=== PATIENT | female | born 1950 | race African-American/Black ===

== ENCOUNTER 2017-02-02 07:10 | Emergency (ER) | payer OTHER ==
[2017-02-02 07:19] VITALS: TEMP 97.8; BMI 21.9
--- NOTE | 2017-02-02 07:33 | PDOC ---
History of Present Illness - General History Source: Patient Exam Limitations: No Limitations - History of Present Illness Initial Comments: CHIEF COMPLAINT: 66 y/o afebrile female with PMH HTN, DM BIB EMS for dizziness and headache. HISTORY OF PRESENT ILLNESS: The patient states for the past 2 days she's had dizziness, describing it as the room spinning. She states she woke up this morning and was so dizzy she thought she was going to pass out. She also admits to left sided headache and pounding in her left ear, which normally means her blood pressure is high. She took 2 doses of Lisinopril yesterday ( normal dose is once a day) because she kept feeling the pounding in her head. She denies fever, chills, neck pain, n/v/d, CP, SOB, palpitations, abd pain, back pain, hematuria, dysuria, hematuria, facial drooping, slurred speech, numbness/tingling in extremities. Vital signs on arrival are notable for BP of 197/92. REVIEW OF SYSTEMS: GENERAL/CONSTITUTIONAL: No fever/chills. No weakness. No weight change. HEAD, EYES, EARS, NOSE AND THROAT: No change in vision. No ear pain or discharge. No sore throat. CARDIOVASCULAR: No chest pain or shortness of breath. RESPIRATORY: No cough, wheezing, or hemoptysis. GASTROINTESTINAL: No abd pain, nausea, vomiting, diarrhea. GENITOURINARY: No dysuria, frequency, or change in urination. MUSCULOSKELETAL: No joint or muscle swelling or pain. No neck or back pain. SKIN: No rash or easy bruising. NEUROLOGIC: +headache and vertigo. No loss of consciousness or loss of sensation. PHYSICAL EXAM: GENERAL: The patient is awake, alert, and fully oriented, in no acute distress. She is well appearing, in NAD or obvious discomfort. HEAD: Normal with no signs of trauma. No hematomas. NECK: Full flexion, extension and lateral movements of neck without pain. No midline cervical spine TTP or step offs. ENT: Pupils equal, round and reactive to light, extraocular movements intact, sclera anicteric, conjunctiva clear. No nystagmus. LUNGS: Clear to auscultation bilaterally. Normal excursion. No respiratory distress or use of accessory muscles. CV: RRR, S1/S2, no MRG. Cap refill < 2 sec. Left sided carotid bruit. ABDOMEN: Soft, non-distended, non-tender even to deep palpation, no hepatomegaly or splenomegaly, no masses. EXTREMITIES: Normal range of motion, no edema. NEUROLOGICAL: Normal speech. CN II-XII grossly intact. No slurred speech. No facial drooping. Normal finger to nose. Normal rapid alternating movements. PSYCH: Normal mood, normal affect. SKIN: Warm, dry, normal turgor, no rashes or lesions noted. <Patty Chatterjee - Last Filed: 02/02/17 18:15> <Veena Gilliam - Last Filed: 02/03/17 10:40> - General Chief Complaint: Blood Pressure Problem Stated Complaint: ABDOMINAL PAIN Time Seen by Provider: 02/02/17 07:18 Past History - Past Medical History Diabetes: Yes (type 2) HTN: Yes - Psycho/Social/Smoking Cessation Hx Suicidal Ideation: No Smoking History: Never smoked <Patty Chatterjee - Last Filed: 02/02/17 18:15> <Veena Gilliam - Last Filed: 02/03/17 10:40> - Past Medical History Allergies/Adverse Reactions: Allergies Allergy/AdvReac Type Severity Reaction Status Date / Time No Known Allergies Allergy Verified 02/02/17 07:14 Home Medications: Ambulatory Orders Cholecalciferol (Vitamin D3) [Vitamin D-400] 400 unit PO DAILY 02/02/17 Glyburide/Metformin HCl [Glyburide-Metformin 5-500 mg] 1 each PO BID 02/02/17 Lisinopril [Prinivil] 10 mg PO DAILY 02/02/17 Magnesium Oxide [Mag-Ox -] 400 mg PO DAILY 02/02/17 Meclizine HCl [Antivert -] 25 mg PO TID #21 tablet 02/02/17 Mv,Calcium,Min/Iron/Folic/Vitk [Essential Woman Tablet] 1 each PO DAILY *Physical Exam - Vital Signs Last Vital Signs Temp Pulse Resp BP Pulse Ox 97.8 F 63 18 197/92 100 02/02/17 07:17 02/02/17 07:17 02/02/17 07:17 02/02/17 07:17 02/02/17 07:17 <Patty Chatterjee - Last Filed: 02/02/17 18:15> - Vital Signs Last Vital Signs Temp Pulse Resp BP Pulse Ox 97.8 F 65 18 144/72 99 02/02/17 07:17 02/02/17 10:15 02/02/17 10:15 02/02/17 10:15 02/02/17 10:15 <Veena Gilliam - Last Filed: 02/03/17 10:40> Heart Score/ECG Review - ECG Intrepretation Comment:: Twelve-lead EKG was performed and reviewed by Dr. Gilliam. There is normal sinus rhythm with a normal rate. The axis is normal. The intervals are normal. Flipped T waves in leads III, V5 and V6. Impression: Abnormal twelve-lead EKG <Patty Chatterjee - Last Filed: 02/02/17 18:15> ED Treatment Course - LABORATORY CBC & Chemistry Diagram: 02/02/17 07:49 02/02/17 07:19 <Patty Chatterjee - Last Filed: 02/02/17 18:15> - LABORATORY CBC & Chemistry Diagram: 02/02/17 07:49 02/02/17 07:19 - ADDITIONAL ORDERS Additional order review: 02/02/17 07:49 RBC 4.45 MCV 83.0 MCHC 32.8 RDW 13.6 MPV 9.5 Neutrophils % 53.3 Lymphocytes % 36.0 Monocytes % 9.8 Eosinophils % 0.2 Basophils % 0.7 - Medications Given in the ED: ED Medications Discontinued Medications Generic Name Dose Route Start Last Admin Trade Name Freq PRN Reason Stop Dose Admin Sodium Chloride 1,000 mls @ 125 mls/hr 02/02/17 07:45 02/02/17 09:35 Normal Saline - IV Not Given ASDIR EMILY Meclizine HCl 25 mg 02/02/17 07:45 02/02/17 08:59 Antivert - PO 02/02/17 07:46 25 mg ONCE ONE Administration <Veena Gilliam - Last Filed: 02/03/17 10:40> Medical Decision Making - Medical Decision Making A/P: 66 y/o afebrile female with dizziness and headache for the past 3 days. Upon arrival to the ER her BP was 197/92. Plan is as follows: 1. Labs 2. EKG 3. Carotid doppler 4. Head CT 5. IV fluids 6. PO meclizine Labs unremarkable. Pt refusing IV fluids; wants to drink PO fluids instead. 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 No evidence of acute intracranial pathology. No evidence of supratentorial ischemia. Carotid Doppler IMPRESSION: Essentially normal carotid sonogram with no evidence of hemodynamically significant stenoses. Labs unremarkable. Repeat BP is 144/72. The patient states she has complete resolution of her dizziness after having meclizine. Explained all of the results to her and her family. The patient does admit she has 3 teeth in the front of her mouth that are decaying and feels that may be causing her symptoms. I suggested she f/u with her dentist and her PCP as soon as possible for follow up. Will send Rx for meclizine and instructed the patient to take as directed if needed for dizziness. Suggested she drink plenty of fluids and return to the ER immediately with any worsening or concerning symptoms. The patient verbalizes understanding of all instructions, has no further questions and is awaiting discharge. <Patty Chatterjee - Last Filed: 02/02/17 18:15> *DC/Admit/Observation/Transfer <Patty Chatterjee - Last Filed: 02/02/17 18:15> - Attestations Physician Attestion: I reviewed the case with the mid-level practitioner and agree with the mid- level practitioner's assessment, diagnosis and disposition. <Veena Gilliam - Last Filed: 02/03/17 10:40> Diagnosis at time of Disposition: Vertigo - Discharge Dispostion Disposition: HOME Condition at time of disposition: Improved - Prescriptions Prescriptions: Meclizine HCl [Antivert -] 25 mg PO TID #21 tablet - Referrals Referrals: STAFF,NOT ON [Primary Care Provider] - - Patient Instructions Printed Discharge Instructions: DI for Vertigo Additional Instructions: Discharge Instructions: -Take meclizine as prescribed for dizziness if needed -Drink at least 64oz of water daily -Follow up with your doctor and your dentist as soon as possible -Return to the ER with any worsening or concerning symptoms. - Post Discharge Activity Work/School Note: Back to Work
[2017-02-02] MEDS ORDERED: SODIUM CHLORIDE 1,000 ML IV SCH (07:45)
[2017-02-02] MEDS ORDERED: MECLIZINE HCL 25 MG TABLET (FP) PO ONE (07:45)
[2017-02-02 08:14] LABS: BASOPHIL 0.7 % (0-2.0); EOSINOPHIL 0.2 % (0-4.5); MCH 27.2 pg (25.7-33.7); MCHC 32.8 g/dl (32.0-36.0); MEAN PLT VOLUME 9.5 fl (7.5-11.1); NEUTROPHILS 53.3 % (42.8-82.8); PLATELET COUNT 162 K/MM3 (134-434); RDW 13.6 % (11.6-15.6); WHITE BLOOD COUNT 4.6 K/mm3 (4.0-10.0)
[2017-02-02 08:15] LABS: INR 0.92 (0.82-1.09); PROTHROMBIN TIME (PATIENT) 10.1 SEC (9.98-11.88)
[2017-02-02 08:35] LABS: ANION GAP 8 (8-16); BILIRUBIN,TOTAL 0.3 mg/dL (0.2-1.0); CALCIUM 8.9 mg/dL (8.5-10.1); CO2 26 mmol/L (21-32); GLUCOSE,RANDOM 202 mg/dL (74-106); SGOT/AST 17 U/L (15-37); SGPT/ALT 29 U/L (12-78)
[2017-02-02 08:38] LABS: ALK PHOS 55 U/L (45-117); TROPONIN I < 0.02 ng/ml (0.00-0.05)
[2017-02-02] MEDS ORDERED: MECLIZINE HCL 25 MG TABLET (FP) ONE (08:55)
[2017-02-02 10:16] VITALS: BP 144/72; PULSE 65
--- NOTE | 2017-02-02 11:05 | EKG ---
Test Reason : Blood Pressure : / mmHG Vent. Rate : 060 BPM Atrial Rate : 060 BPM P-R Int : 146 ms QRS Dur : 078 ms QT Int : 412 ms P-R-T Axes : 066 -08 -38 degrees QTc Int : 412 ms NORMAL SINUS RHYTHM SEPTAL INFARCT , AGE UNDETERMINED T WAVE ABNORMALITY, CONSIDER LATERAL ISCHEMIA ABNORMAL ECG NO PREVIOUS ECGS AVAILABLE Confirmed by WICHO ALFARO MD ([id number]) on 02/02/2017 11:05:04 AM Referred By: Confirmed By:WICHO ALFARO MD
== END 2017-02-02 10:14 | disposition home or self-care (01) ==
LOC: JER 07:10
DX: R42 Dizziness and giddiness (principal); I10 Essential (primary) hypertension; E11.9 Type 2 diabetes mellitus without complications; Z79.84 Long term (current) use of oral hypoglycemic drugs
CPT/HCPCS: 36415; 70450-TC; 80053; 82550; 84484; 85025; 85610; 93005; 93010; 93880-TC; 99285-25